=== PATIENT | male | born 1930 | race Caucasian/White ===

== ENCOUNTER → 2016-12-28 | Outpatient (REF) | payer MEDICARE, MEDICAID ==
[~2016-12-28] MED LIST: /AUGM875TA OR; ACET65TA PO; ALBU83IN IN; ALLE25CA PO; ASPI81TA83 PO; CORE3.12 OR; COZA25TA8 PO; HYDR-727 PO; MULTIVIT PO; RANI150C PO; SENN8.6T5 PO; SIMV20TA2 PO; TRAM50TA2 PO; [UNRECOGNIZED DRUG - OTHER] PO; atrovent; mucinex; ventolin
== END ==
LOC: SKLAB4 13:29
PROVIDERS: ATTEND Family Medicine
DX: R82.99 Other abnormal findings in urine (principal)

== ENCOUNTER → 2016-12-30 | Outpatient (REF) | payer MEDICARE, MEDICAID ==
[2016-12-30 13:39] LABS: ANION GAP 9 MEQ/L (8-16); BLOOD UREA NITROGEN 24 MG/DL (7-18); CALCIUM LEVEL 8.7 MG/DL (8.8-10.2); CARBON DIOXIDE LEVEL 30 MEQ/L (21-32); CHLORIDE LEVEL 100 MEQ/L (98-107); CREATININE FOR GFR 1.17 MG/DL (0.70-1.30); GLOMERULAR FILTRATION RATE > 60.0 (>35); GLUCOSE, FASTING 261 MG/DL (83-110); SODIUM LEVEL 139 MEQ/L (136-145)
== END ==
LOC: SKLAB4 12:06
PROVIDERS: ATTEND Family Medicine
DX: I50.9 Heart failure, unspecified (principal); I10 Essential (primary) hypertension

== ENCOUNTER → 2017-02-07 | Outpatient (REF) | payer MEDICARE, MEDICAID | LOC: SKLAB4 12:44 | PROVIDERS: ATTEND Family Medicine | DX: A49.02 Methicillin resistant Staphylococcus aureus infection, unspecified site (principal) ==

== ENCOUNTER → 2017-03-07 | Outpatient (REF) | payer MEDICARE, MEDICAID | LOC: SKLAB4 11:28 → EEVIPCON 11:28 | PROVIDERS: ATTEND Family Medicine | DX: Z22.322 Carrier or suspected carrier of Methicillin resistant Staphylococcus aureus (principal) ==

== ENCOUNTER → 2017-08-22 | Outpatient (REF) ==
[2017-08-22 12:55] LABS: MEAN CORPUSCULAR HEMOGLOBIN 28.4 pg (27.0-33.0); MEAN CORPUSCULAR HGB CONC 31.8 g/dl (32.0-36.5); MEAN CORPUSCULAR VOLUME 89.4 fl (80.0-96.0); PLATELET COUNT, AUTOMATED 308 10^3/uL (150-450); RED CELL DISTRIBUTION WIDTH 14.7 % (11.5-14.5)
[2017-08-22 14:03] LABS: ALBUMIN/GLOBULIN RATIO 0.68 (1.00-1.93); ALKALINE PHOSPHATASE 93 U/L (45-117); ALT/SGPT 13 U/L (12-78); ANION GAP 7 MEQ/L (8-16); AST/SGOT 21 U/L (7-37); BILIRUBIN,TOTAL 1.2 MG/DL (0.2-1.0); BLOOD UREA NITROGEN 22 MG/DL (7-18); CARBON DIOXIDE LEVEL 33 MEQ/L (21-32); CHLORIDE LEVEL 97 MEQ/L (98-107); CREATININE FOR GFR 1.02 MG/DL (0.70-1.30); GLOMERULAR FILTRATION RATE > 60.0 (>35); GLUCOSE, FASTING 153 MG/DL (83-110); POTASSIUM SERUM 4.4 MEQ/L (3.5-5.1); SODIUM LEVEL 137 MEQ/L (136-145); TOTAL PROTEIN 7.4 GM/DL (6.4-8.2)
== END ==
LOC: SKLAB4 10:25
PROVIDERS: ATTEND Family Medicine
DX: I10 Essential (primary) hypertension (principal); E11.9 Type 2 diabetes mellitus without complications

== ENCOUNTER → 2017-08-24 | Outpatient (REF) ==
--- NOTE | 2017-08-24 19:41 | REP ---
CHEST AP LATERAL 08/24/2017 Clinical history: Hemoptysis. Comparison: 02/13/2015. There is a mass-like opacity in the right upper lobe. The vertical height of the 7 cm extending 8 cm from the hilum transversely with AP diameter up to 12 cm on the lateral view. This could be mass or central mass with postobstructive atelectasis. Small effusion noted on that left side on the cross-table lateral view. The right lung was clear. The heart is enlarged. The aorta is tortuous and calcified, unchanged. Airway midline. No debbie edema. Impression: 1. Large mass-like opacity right upper lobe suspicious for lung malignancy. Small right effusion. No debbie edema. Differential considerations would be postobstructive atelectasis or pneumonia from endobronchial lesion and segmental pneumonia. There is no finding in this area on the previous study in January 2015. Signed by George Dean MD 08/24/2017 08:03 P
== END ==
LOC: SKLAB4 12:18
PROVIDERS: ATTEND Family Medicine
DX: R91.8 Other nonspecific abnormal finding of lung field (principal); J90 Pleural effusion, not elsewhere classified

== ENCOUNTER → 2017-09-07 | Outpatient (CLI) | payer MEDICARE, MEDICAID ==
[~2017-09-07] MED LIST changes: +ISOVUE-370 76% 100ML VIAL (Q9967) As Ordered ONE
--- NOTE | 2017-09-07 19:35 | REP ---
CT study of the chest without contrast: History: Abnormal chest x-ray. Comparison chest x-ray August 24, 2017. CT findings: CT study confirms the presence of a small to moderate right pleural effusion. There is a large irregularly shaped opacity throughout much of the right upper lobe particularly anteriorly. At least some of this in the anterior distribution as likely pulmonary parenchymal opacification, perhaps postobstructive. I cannot exclude a peripheral and more lateral right upper lobe mass. There is some interstitial consolidation adjacent. The inferior and superior margins of this opacity are convex. No cavitary changes seen. There is mild mediastinal lymphadenopathy in the pretracheal region. The largest lymph node here is 13 x 21 mm. No definite hilar adenopathy is seen. There is a subcarinal lymph node measuring 18 x 20 mm. There is a sliding type hiatal hernia. In the adjacent herniated fat, there appears to be a lymph node to the right of midline measuring 20 x 29 mm. No adrenal lesion is observed on either side. There are clips in the gallbladder fossa. There are clips in the left upper quadrant of the abdomen and there are periportal clips. These are adjacent to the head of the pancreas. There are multiple subtle subcentimeter very small low density areas in the rib cage bilaterally raising question of skeletal metastatic disease. No other bony lesion is seen. Impression: Small to moderate right pleural effusion. Large mass-like opacity probably in conjunction with postobstructive consolidation in the right upper lobe. There is suspicious mediastinal lymphadenopathy. Question early metastatic rib lesions. Consider radionuclide bone scan. Postoperative changes in the upper abdomen. Signed by Monty Lobo MD 09/08/2017 08:06 A
== END ==
LOC: M RAD 10:22
PROVIDERS: ATTEND Family Medicine
DX: R91.8 Other nonspecific abnormal finding of lung field (principal); J91.8 Pleural effusion in other conditions classified elsewhere
CPT/HCPCS: 71250; Q9967